=== PATIENT | male | born 1985 | race Caucasian/White ===

== ENCOUNTER 2017-05-30 17:56 | Emergency (ER) | payer OTHER, MEDICAID ==
[~2017-05-30] VITALS: Ht 182.9 cm; Wt 88.9 kg
[2017-05-30 17:59] VITALS: Ht 182.9 cm; Wt 88.9 kg
[2017-05-30 20:02] LABS: CALCIUM 8.3 mg/dL (8.5-10.1); CARBON DIOXIDE 24.3 mmol/L (21-32); CHLORIDE SERUM 105 mmol/L (98-107); GFR1 > 60 mL/min; GLUCOSE SERUM 127 mg/dL (74-106); POTASSIUM SERUM 3.7 mmol/L (3.5-5.1); SODIUM SERUM 139 mmol/L (136-145)
[2017-05-31 00:20] VITALS: BP 126/83
== END 2017-05-31 00:20 | disposition home or self-care (01) ==
LOC: ED 17:56
PROVIDERS: Specialist
DX: S12.030A Displaced posterior arch fracture of first cervical vertebra, initial encounter for closed fracture (principal); F17.210 Nicotine dependence, cigarettes, uncomplicated; G40.409 Other generalized epilepsy and epileptic syndromes, not intractable, without status epilepticus; Z71.6 Tobacco abuse counseling; X50.0XXA Overexertion from strenuous movement or load, initial encounter; Y93.89 Activity, other specified; Y99.8 Other external cause status; Y92.89 Other specified places as the place of occurrence of the external cause
CPT/HCPCS: 99406; J1170; J1953; J2405; J3010; J3490

== ENCOUNTER 2019-04-26 13:46 | Emergency (ER) | payer OTHER ==
[~2019-04-26] VITALS: Ht 175.3 cm; Wt 81.6 kg
[2019-04-26 14:00] VITALS: Ht 175.3 cm; Wt 81.6 kg
[2019-04-26 14:46] LABS: BASOPHIL % 0.1 % (0-2); PLATELET COUNT 212 x10^3mcL (130-400)
[2019-04-26 15:41] LABS: ALKALINE PHOSPHATASE 66 U/L (46-116); ALT/SGPT 25 U/L (16-63); AST/SGOT 21 U/L (15-37); BILIRUBIN TOTAL 0.2 mg/dL (0.20-1.00); CALCIUM 8.1 mg/dL (8.5-10.1); CARBON DIOXIDE 26.6 mmol/L (21-32); CHLORIDE SERUM 107 mmol/L (98-107); CREATININE SERUM 1.3 mg/dL (0.7-1.3); GFR1 > 60 mL/min; GLUCOSE SERUM 89 mg/dL (74-106); POTASSIUM SERUM 4.5 mmol/L (3.5-5.1); SODIUM SERUM 141 mmol/L (136-145)
[2019-04-26 15:43] LABS: ALBUMIN 3.3 g/dL (3.4-5.0); TOTAL PROTEIN, SERUM 6.1 g/dL (6.4-8.2)
[2019-04-26 20:19] VITALS: BP 112/65
== END 2019-04-26 20:19 | disposition short-term general hospital (02) ==
LOC: ED 13:46
PROVIDERS: Emergency Medicine
DX: S12.091A Other nondisplaced fracture of first cervical vertebra, initial encounter for closed fracture (principal); S00.83XA Contusion of other part of head, initial encounter; S00.512A Abrasion of oral cavity, initial encounter; R56.9 Unspecified convulsions; M25.512 Pain in left shoulder; M79.652 Pain in left thigh; W18.09XA Striking against other object with subsequent fall, initial encounter; Y93.89 Activity, other specified; Y92.89 Other specified places as the place of occurrence of the external cause; Y99.8 Other external cause status
CPT/HCPCS: J1885; J2405; J3010